=== PATIENT | female | born 1960 | race Caucasian/White ===

== ENCOUNTER → 2018-11-18 10:02 | Outpatient (CLI) | payer BC, SELFPAY ==
--- NOTE | 2018-11-18 10:07 | XR_ITS ---
PROCEDURE: XR LUMBAR SPINE MIN 4V CLINICAL INDICATION: LBP Low back pain COMPARISON: No exams were available for comparison FINDINGS: Normal alignment. No fracture or dislocation. There is mild degenerative disc disease at L3-L4. No lytic or blastic change. IMPRESSION: Mild degenerative disc disease L3-L4 otherwise negative Dictated by: Raymond Celaya MD 11/18/2018 11:51 Signed by: <Electronically signed by Raymond Celaya MD in [place]> 11/18/2018 11:51
== END ==
PROVIDERS: PCP Family Medicine; Visit Provider Family Medicine
DX: M54.5 Low back pain (principal)
CPT/HCPCS: 72110

== ENCOUNTER → 2019-09-02 16:02 | Outpatient (CLI) | payer OTHER, SELFPAY ==
--- NOTE | 2019-09-02 | XR_ITS ---
PROCEDURE: XR THORACIC SPINE 3V CLINICAL INDICATION: Back pain COMPARISON: No exams were available for comparison FINDINGS: Levoscoliosis of the thoracic spine. No acute fracture or dislocation. Mild degenerative disc disease is present in the midthoracic spine. IMPRESSION: Degenerative changes with scoliosis, no acute finding Dictated by: Raymond Celaya MD 09/02/2019 18:08 Electronically signed by Raymond Celaya MD in [place] 09/02/2019 18:08
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
--- NOTE | 2019-09-02 | XR_ITS ---
PROCEDURE: XR SHOULDER LT MIN 2V CLINICAL INDICATION: Posttraumatic pain COMPARISON: No exams were available for comparison FINDINGS: There are mild bony hypertrophic changes at the acromioclavicular joint. No acute fracture or dislocation is evident. Calcification is present along the lateral aspect of the humeral head consistent with calcific tendinitis. There are mild degenerative changes in the left glenohumeral joint IMPRESSION: No acute fracture. Calcific tendinitis with degenerative changes of the AC joint and glenohumeral joint Dictated by: Raymond Celaya MD 09/02/2019 18:04 Electronically signed by Raymond Celaya MD in [place] 09/02/2019 18:04
== END ==
PROVIDERS: PCP Family Medicine; Visit Provider Family Medicine
DX: M54.2 Cervicalgia (principal); V89.2XXA Person injured in unspecified motor-vehicle accident, traffic, initial encounter; M25.512 Pain in left shoulder
CPT/HCPCS: 72050; 72072; 73030

== ENCOUNTER → 2019-10-02 08:30 | Outpatient (CLI) | payer OTHER, SELFPAY ==
[2019-10-02 09:53] LABS: Coronavirus 19 IgG Antibody Negative (Negative); Coronavirus 19 IgM Antibody Negative (Negative)
== END ==
PROVIDERS: PCP Family Medicine; Visit Provider Family Medicine
DX: Z03.818 Encounter for observation for suspected exposure to other biological agents ruled out (principal)
CPT/HCPCS: 36415; 86328

== ENCOUNTER → 2020-07-09 09:16 | Outpatient (CLI) | payer OTHER, SELFPAY ==
[2020-07-09 09:55] LABS: Basophils % 0.6 % (0.1-2.0); Eosinophils # 0.1 K/mm3 (0.0-0.4); Eosinophils % 2.4 % (0.1-12.0); Hematocrit 44.2 % (37.0-47.0); Hemoglobin 14.8 g/dL (12.2-16.2); Lymphocytes # 1.7 K/mm3 (0.7-4.5); Lymphocytes % 29.8 % (10-50); Mean Corpuscular HGB Conc 33.5 g/dL (31.8-35.4); Mean Corpuscular Volume 86.7 fl (81-99); Mean Platelet Volume 9.2 fl (7.4-10.4); Monocytes # 0.4 K/mm3 (0.1-1.0); Monocytes % 6.8 % (1.7-9.3); Neutrophils # 3.4 K/mm3 (1.8-7.8); Neutrophils % 60.5 % (37.0-80.0); Platelet Count 249 K/mm3 (142-424); Red Cell Distribution Width 12.9 % (11.5-17.5); White Blood Count 5.6 K/mm3 (4.8-10.8)
[2020-07-09 11:59] LABS: Alanine Aminotransferase 19 U/L (12-78); Albumin Level 4.7 g/dl (3.5-5.0); Albumin/Globulin Ratio 1.7 (1.1-1.8); Alkaline Phosphatase 85 U/L (38-126); Aspartate Amino Transferase 27 U/L (14-36); Bilirubin,Total 0.6 mg/dl (0.2-1.3); Blood Urea Nitrogen 18 mg/dl (7-17); Calcium 10.2 mg/dl (8.4-10.2); Carbon Dioxide 28 mmol/L (22.0-30.0); Chloride 107 mmol/L (98-107); Estimated Glomerular Filt Rate 74 ml/min (>60); GFR (African American) 89 ML/MIN (>60); Globulin 2.7 g/dL (1.3-3.2); Glucose 96 mg/dl (74-100); Sodium 139 mmol/L (136-145); Total Protein,Serum 7.4 g/dl (6.3-8.2); Uric Acid 3.7 mg/dl (2.5-6.2)
[2020-07-09 12:30] LABS: Thyroid Stimulating Hormone 1.54 uIU/mL (0.465-4.68)
[2020-07-09 12:48] LABS: Vitamin B12 292 pg/mL (239-931)
[2020-07-09 13:15] LABS: Erythrocyte Sedimentation Rate 17 mm/hr (0-30)
[2020-07-10 12:24] LABS: RA Latex Turbid. <10.0 IU/mL (0.0-13.9)
[2020-07-13 17:06] LABS: Antinuclear Antibodies, IFA Negative (.)
[2020-07-16 08:55] LABS: HLA-B27 Negative (.)
== END ==
PROVIDERS: Visit Provider Nurse Practitioner Family
DX: R06.00 Dyspnea, unspecified (principal); M25.50 Pain in unspecified joint; M53.9 Dorsopathy, unspecified; R20.2 Paresthesia of skin
CPT/HCPCS: 36415; 80053; 82607; 84443; 84550; 85025; 85651; 86038; 86431; 86812

== ENCOUNTER → 2020-07-13 12:07 | Outpatient (CLI) | payer OTHER, SELFPAY ==
--- NOTE | 2020-07-13 | CA_ITS ---
APPROVED REPORT Exam: Pharmacologic Technologist: Bryanna Tellez, Ht: 5 ft 3 in Wt: 160 lbs BSA: 1.76 m2 HR: 75 bpm BP: 133/79 mmHg Stress Test Details Test: LEXISCAN HR Resting HR: 75 bpm Max Heart Rate (APMHR): 162 bpm Max HR Achieved: 129 bpm Target HR (85% APMHR): 137 bpm % of APMHR: 79 Recovery HR: 88 bpm BP Resting BP: 133/79 mmHg Max BP: 184/91 mmHg Recovery BP: 140.0/71.0 mmHg ECG Resting ECG: NSR Clinical Exercise duration: 04:00 min Highest Stage Achieved: Exercise capacity: 1.0 METs Stress ECG Conclusion Symptoms: Chest tightness, SOA, malaise Arrhythmias/Ectopy: None ST-T Changes: No significant changes. Conclusion: Unremarkable Lexiscan stress. Myoview images reported separately. Electronically signed by : Charles Joseph, 07/13/2020 18:09:31
--- NOTE | 2020-07-13 12:15 | NM_ITS ---
APPROVED REPORT Exam: Nuclear Stress Test Indication: CHEST PAIN..SHORT OF BREATH..FATIGUE Patient Location: Outpatient Stress Tech: Bryanna Tellez PR Tech:Yris Paiz, ARRT, RT (R)(N) Ht: 5 ft 3 in Wt: 160 lbs Bra Size: 36C HR: 75 bpm BP: 133/79 mmHg BSA: 1.76 m2 BMI: 28.3 History: CHEST PAIN..SHORT OF BREATH..FATIGUE5 Procedure: Patient received a 0.4 mg of intravenous Lexiscan, resting heart rate 75 bpm, resting blood pressure 133/79 mmHg, with Lexiscan maximum heart rate achived was 117 bpm which is Less than 85 % of the maximum predicted heart rate and blood pressure was 169/93 mmHg. With Lexiscan, patient denied any complaint of chest pain. Electrocardiogram Resting electrocardiogram shows sinus rhythm, with Lexiscan there is less than 1.[address] segment depression noted from the baseline EKG. The EKG portion of the Lexiscan is nondiagnostic. Cardiac Stress and Resting SPECT Images: Cardiac Stress and Resting SPECT images were obtained using technetium 99m Myoview 32.8 mCi stress and 10.62 mCi at rest. Gated SPECT for analysis of segmental wall motion and calculation of the ejection fraction also done. Prone images were also obtained. Cardiac stress and resting SPECT images show uniform myocardial activity without segmental perfusion abnormality, computer derived ejection fraction is 61% with no regional wall motion abnormality, right ventricle is normal size and contractility. However there is transient ischemic dilatation of the left ventricle seen, raising the concerns for presence of balanced ischemia. Conclusion: 1. The EKG portion of the Lexiscan is nondiagnostic. 2. No scintigraphic evidence of reversible ischemia seen, computer derived ejection fraction is 61% with no regional wall motion abnormality, right ventricle is normal size and contractility. There is transient ischemic dilatation of the left ventricle seen, raising the concerns for presence of balanced ischemia. 3. Abnormal Lexiscan Myoview study. Electronically signed by : Charles Joseph, 07/13/2020 18:26:45
== END ==
PROVIDERS: PCP Nurse Practitioner Family; Visit Provider Nurse Practitioner Family
DX: R07.9 Chest pain, unspecified (principal); R06.00 Dyspnea, unspecified; E78.5 Hyperlipidemia, unspecified; Z82.49 Family history of ischemic heart disease and other diseases of the circulatory system
CPT/HCPCS: 78452; 93017; A9502; J2785

== ENCOUNTER → 2020-07-20 12:00 | Outpatient (CLI) | payer OTHER, SELFPAY | PROVIDERS: PCP Nurse Practitioner Family; Visit Provider Internal Medicine | DX: Z20.822 Contact with and (suspected) exposure to COVID-19 (principal) | CPT/HCPCS: U0003 ==

== ENCOUNTER 2020-07-21 08:27 | Day surgery (SDC) | payer OTHER, SELFPAY ==
[2020-07-21] VITALS (13 sets, daily range): BP systolic 100–164; BP diastolic 49–94; PULSE 66–89; RESP 16–20; TEMP 36.9; O2SAT 94–100; BMI 29.0
--- NOTE | 2020-07-21 08:24 | IR_ITS ---
APPROVED REPORT Patient Location: Outpatient Felt Strip Finisher: SONNY Wallace RT (R) PROCEDURES Left heart catheterization Left ventriculogram Selective coronary angiogram Drug-eluting stent deployment to the proximal LAD INDICATION High risk abnormal Myoview, Coronary artery disease, Angina pectoris class III, Informed consent was obtained prior to the procedure. COMPLICATIONS None Estimated Blood Loss: Less than 10 mls TECHNIQUE One percent lidocaine used to anesthetize the right anterior aspect of the wrist. The right radial artery was accessed via the Seldinger technique. A 6 Slovak sheath was placed in the right radial artery. 2.5 mg of verapamil, 800 mcg of nitroglycerin, 1mg Lidocaine and 5000 U Heparin were given through the arterial sheath. The trap catheter was also used to perform left heart catheterization, left ventriculogram and selective coronary angiogram. At the end of the diagnostic procedure therapeutic heparin was administered giving a therapeutic ACT. Initially and I Shelley left guide catheter was placed in the left main artery however this would not seat properly therefore a 6 Slovak JL 3 guide catheter was placed in the left main artery. A Choice PT extra-support wire was placed distally in the LAD and a 3 mm x 22 mm resolute Oswaldo stent was deployed at 18 sharon reducing the critical stenosis to 0%. Proximal disease was present therefore 3.5 x 15 mm resolute Tolley stent was deployed proximal to the first stent yet still overlapping it and deployed at 20 sharon. An additional 3.5 x 8 mm resolute Tolley stent was then placed proximal to this still overlapping the second stent and deployed at 20 sharon to further reduce all of the disease. At the end of the procedure the stent was widely patent landing normal zone proximally and normal zone distally. JACKY II flow was present at the beginning of the procedure with JACKY-3 flow at the end of the procedure. After achieving excellent angiographic results the apparatus was removed the sheath was removed and hemostasis was achieved using TR banding patient was transferred to the postop holding area in stable condition ANGIOGRAPHIC RESULTS The left main artery Normal The left anterior descending artery Has proximal 30 and 40% followed by concentric 90% stenosis The circumflex artery Is a large-caliber probably codominant vessel with proximal 30% and a mid vessel 30 to 40% stenosis The right coronary artery Is a codominant vessel and has proximal 30% mid vessel 30 to 40% and distal 10 to 20% stenoses The BOLTON ventriculogram reveals Normal 65% The left ventricular end-diastolic pressure Severely elevated at 40 mmHg IMPRESSION Severe to critical proximal LAD disease as described above accompanied by JACKY II flow Successful stenting of the proximal LAD critical disease reduced to 0% with 3 drug-eluting stents placed in a contiguous manner Persistent mild to moderate coronary disease as described above Normal ejection fraction Severely elevated LVEDP most likely secondary to ischemic diastolic dysfunction PLAN 1. Dual antiplatelet therapy 2. LDL less than 55 3. Cardiac rehabilitation 4. Avoidance of tobacco products 5. At this time I do not want to treat the severely elevated LVEDP with diuretics. Most likely her diastolic dysfunction was secondary to the critical LAD stenosis. With improved JACKY-3 flow into the LAD this should resolve the diastolic dysfunction. 6. If after 2 weeks patient continues to experience dyspnea, at that time diuretics can be added to specifically treat the diastolic dysfunction Electronically signed by : Michael Cross, 07/21/2020 11:18:44
[2020-07-21 08:55] LABS: Basophils # 0.1 K/mm3 (0-0.2); Basophils % 1.1 % (0.1-2.0); Eosinophils # 0.2 K/mm3 (0.0-0.4); Eosinophils % 2.7 % (0.1-12.0); Hematocrit 45.1 % (37.0-47.0); Hemoglobin 14.9 g/dL (12.2-16.2); Lymphocytes # 1.7 K/mm3 (0.7-4.5); Lymphocytes % 28.1 % (10-50); Mean Corpuscular HGB Conc 32.9 g/dL (31.8-35.4); Mean Corpuscular Hemoglobin 28.8 pg (27.0-31.2); Mean Corpuscular Volume 87.5 fl (81-99); Mean Platelet Volume 9.3 fl (7.4-10.4); Monocytes # 0.4 K/mm3 (0.1-1.0); Monocytes % 6.7 % (1.7-9.3); Neutrophils # 3.6 K/mm3 (1.8-7.8); Neutrophils % 61.4 % (37.0-80.0); Platelet Count 242 K/mm3 (142-424); Red Blood Count 5.16 M/mm3 (4.20-5.40); White Blood Count 5.9 K/mm3 (4.8-10.8)
[2020-07-21 09:08] LABS: Chloride 103 mmol/L (98-107); Potassium 4.7 mmoL/L (3.5-5.1); Sodium 139 mmol/L (136-145)
[2020-07-21 09:11] LABS: Anion Gap 10.7 mEq/L (5-15); Blood Urea Nitrogen 18 mg/dl (7-17); Calcium 9.9 mg/dl (8.4-10.2); Carbon Dioxide 30 mmol/L (22.0-30.0); Creatinine Clearance Estimated 90 mL/min (50-200); Estimated Glomerular Filt Rate 74 ml/min (>60); GFR (African American) 89 ML/MIN (>60); Glucose 107 mg/dl (74-100)
[2020-07-21 12:24] LABS: CATHL Activated Clotting Time > 400 SEC (74-125)
--- NOTE | 2020-07-21 14:44 | HMH.PHACLD ---
Gissel Rincon has received discharge medication counseling on the following medications: ASPIRIN 81MG BRILINTA 90MG ATORVASTATIN 40MG BISOPROLOL 5MG ACEI NOT PRESCRIBED AT THIS TIME PER CARDIOLOGY. ALL NEW MEDICATIONS SENT TO [facility]. PATIENT HAD NO QUESTIONS AT THIS TIME AND VERBALIZED UNDERSTANDING. -ALEJANDRA ELENA, PHARMD
== END 2020-07-21 15:12 | disposition home or self-care (01) ==
PROVIDERS: PCP Nurse Practitioner Family; Visit Provider Internal Medicine
DX: I25.119 Atherosclerotic heart disease of native coronary artery with unspecified angina pectoris (principal); Z87.891 Personal history of nicotine dependence; M79.602 Pain in left arm; Z82.49 Family history of ischemic heart disease and other diseases of the circulatory system; R06.00 Dyspnea, unspecified; K21.9 Gastro-esophageal reflux disease without esophagitis
CPT/HCPCS: 36415; 80048; 85025; 85347; 92928; 93458; 99152; 99153; C1725; C1769; C1874; C1876; C9600; J1644; Q9967

== ENCOUNTER → 2020-07-28 11:09 | Outpatient (CLI) | payer OTHER, SELFPAY ==
[2020-07-28 11:34] LABS: Basophils # 0.1 K/mm3 (0-0.2); Basophils % 0.5 % (0.1-2.0); Eosinophils # 0.2 K/mm3 (0.0-0.4); Eosinophils % 1.7 % (0.1-12.0); Hematocrit 41.6 % (37.0-47.0); Hemoglobin 14.2 g/dL (12.2-16.2); Lymphocytes % 21.9 % (10-50); Mean Corpuscular HGB Conc 34.1 g/dL (31.8-35.4); Mean Corpuscular Hemoglobin 29.3 pg (27.0-31.2); Mean Corpuscular Volume 85.7 fl (81-99); Mean Platelet Volume 9.8 fl (7.4-10.4); Monocytes # 0.5 K/mm3 (0.1-1.0); Monocytes % 5.6 % (1.7-9.3); Neutrophils # 6.4 K/mm3 (1.8-7.8); Neutrophils % 70.4 % (37.0-80.0); Platelet Count 265 K/mm3 (142-424); Red Blood Count 4.86 M/mm3 (4.20-5.40); Red Cell Distribution Width 12.7 % (11.5-17.5); White Blood Count 9.1 K/mm3 (4.8-10.8)
[2020-07-28 12:00] LABS: Chloride 102 mmol/L (98-107); Potassium 4.5 mmoL/L (3.5-5.1); Sodium 138 mmol/L (136-145)
[2020-07-28 12:03] LABS: Anion Gap 13.5 mEq/L (5-15); Blood Urea Nitrogen 17 mg/dl (7-17); Calcium 9.9 mg/dl (8.4-10.2); Carbon Dioxide 27 mmol/L (22.0-30.0); Estimated Glomerular Filt Rate 74 ml/min (>60); GFR (African American) 89 ML/MIN (>60); Glucose 113 mg/dl (74-100)
--- NOTE | 2020-07-28 14:59 | CA_ITS ---
APPROVED REPORT Bilateral Lower Extremity Venous Study for Machine Maintenance Repairer: Romain RCS, RVS Indications Lower Extremity Pain: Right right leg pain, s/p rt radial heart cath with 3 stents 07/23/2020 Vein Imaging CFV (R): compressive, spontaneous, phasic, augmentation FEM (R): compressive, spontaneous, phasic, augmentation POP (R): compressive, spontaneous, phasic, augmentation DFV (R): compressive, spontaneous, phasic, augmentation PTV (R): compressive, spontaneous, phasic, augmentation GSV (R): compressive, spontaneous, phasic, augmentation Peroneals (R):compressive, spontaneous, phasic, augmentation GAS (R): compressive, spontaneous, phasic, augmentation Findings Color flow duplex demonstrates no evidence of DVT of the following right lower extremity Veins:Common Femoral Vein, Femoral Vein, Popliteal Vein, Posterior Tibial Veins, Peroneal Veins, Deep Femoral Vein. Conclusion Negative for DVT. Electronically signed by : Raymond Celaya MD 07/28/2020 17:23:37
== END ==
PROVIDERS: PCP Nurse Practitioner Family; Visit Provider Internal Medicine
DX: M79.604 Pain in right leg (principal)
CPT/HCPCS: 36415; 80048; 85025; 93971

== ENCOUNTER → 2020-08-03 10:11 | Outpatient (CLI) | payer OTHER, SELFPAY ==
--- NOTE | 2020-08-03 10:19 | XR_ITS ---
PROCEDURE: XR KNEE RT 4V CLINICAL INDICATION: right knee pain; weightbearing COMPARISON: No exams were available for comparison FINDINGS: No acute fractures or dislocations. Bone density is normal. Tricompartmental degenerative changes. Prominence of the intercondylar tubercles are noted. Chondrocalcinosis noted in the medial and lateral compartments. No suprapatellar joint effusion. No significant soft tissue abnormality is noted. IMPRESSION: Minor degenerative changes. Chondrocalcinosis. No acute fractures or dislocations. Dictated by: Beverly Silva 08/03/2020 12:14 Beverly Silva in [place] 08/03/2020 12:14
== END ==
PROVIDERS: PCP Nurse Practitioner Family; Visit Provider Orthopaedic Surgery
DX: M25.561 Pain in right knee (principal)
CPT/HCPCS: 73564

== ENCOUNTER → 2020-08-17 08:14 | Outpatient (CLI) | payer OTHER, SELFPAY ==
[2020-08-17 09:38] LABS: Alanine Aminotransferase 18 U/L (12-78); Albumin Level 4.4 g/dl (3.5-5.0); Alkaline Phosphatase 101 U/L (38-126); Aspartate Amino Transferase 21 U/L (14-36); Bilirubin,Direct 0.3 mg/dl (0.0-0.4); Bilirubin,Indirect 0.6 mg/dL (0.0-0.9); Bilirubin,Total 0.9 mg/dl (0.2-1.3); Bilirubin,Unconjugated 0.6 mg/dL (0.0-1.1); Chol/HDL Ratio 3.2 (1-3.5); Cholesterol 167 mg/dl (140-200); HDL Cholesterol 52 mg/dl (40-60); Total Protein,Serum 6.9 g/dl (6.3-8.2); Triglycerides 111 mg/dl (30-150); VLDL Cholesterol 22 mg/dL (0-40)
[2020-08-17 09:50] LABS: Direct LDL Cholesterol 86.62 mg/dL (100-129)
[2020-08-17 15:24] LABS: Anion Gap 11.2 mEq/L (5-15); Blood Urea Nitrogen 18 mg/dl (7-17); Calcium 9.2 mg/dl (8.4-10.2); Carbon Dioxide 25 mmol/L (22.0-30.0); Chloride 105 mmol/L (98-107); Estimated Glomerular Filt Rate 74 ml/min (>60); GFR (African American) 89 ML/MIN (>60); Glucose 102 mg/dl (74-100); Potassium 4.2 mmoL/L (3.5-5.1); Sodium 137 mmol/L (136-145)
== END ==
PROVIDERS: Internal Medicine; Visit Provider Physician Assistant
DX: R06.00 Dyspnea, unspecified (principal); I25.10 Atherosclerotic heart disease of native coronary artery without angina pectoris; K21.9 Gastro-esophageal reflux disease without esophagitis; Z82.49 Family history of ischemic heart disease and other diseases of the circulatory system; Z87.891 Personal history of nicotine dependence
CPT/HCPCS: 36415; 80048; 80061; 80076

== ENCOUNTER 2020-08-25 13:55 | Outpatient (RCR) | payer OTHER, SELFPAY | END 2020-11-08 10:45 | disposition home or self-care (01) | LOC: PT 13:55 | PROVIDERS: Visit Provider Internal Medicine | DX: I25.10 Atherosclerotic heart disease of native coronary artery without angina pectoris (principal) | CPT/HCPCS: 93798 ==

== ENCOUNTER → 2020-09-02 14:46 | Outpatient (CLI) | payer OTHER, SELFPAY ==
--- NOTE | 2020-09-02 15:30 | CA_ITS ---
APPROVED REPORT Refueler: MARINA Laterality: Bilateral Indications: CAD, dizziness Risk Factors CAD, Doppler Spectral Velocity Analysis ECA (R) 66.30/13.90 cm/s ECA (L) 54.50/13.90 cm/s dICA (R) 71.80/26.20 cm/s dICA (L) 71.10/26.20 cm/s Boni (R) 80.10/28.40 cm/s Boni (L) 77.10/24.70 cm/s pICA (R) 55.10/17.10 cm/s pICA (L) 79.60/25.00 cm/s dCCA (R) 69.50/19.20 cm/s dCCA (L) 71.30/17.30 cm/s pCCA (R) 96.20/20.30 cm/s pCCA (L) 86.70/20.20 cm/s Vert (R) 48.10/11.80 cm/s Vert (L) 34.80/10.20 cm/s ICA/CCA 1.15 ICA/CCA 1.12 Findings Duplex evaluation demonstrates stenosis of the right proximal internal carotid artery <20% with PSV <140 cm/sec, EDV <100 cm/sec, and IC/CC Ratio <4.0. Duplex evaluation demonstrates stenosis of the left proximal internal carotid artery <20% with PSV <140 cm/sec, EDV <100 cm/sec, and IC/CC Ratio <4.0. Conclusion Duplex evaluation demonstrates stenosis of the right proximal internal carotid artery <20% with PSV <140 cm/sec, EDV <100 cm/sec, and IC/CC Ratio <4.0. Duplex evaluation demonstrates stenosis of the left proximal internal carotid artery <20% with PSV <140 cm/sec, EDV <100 cm/sec, and IC/CC Ratio <4.0. Electronically signed by : Raymond Celaya MD 09/03/2020 15:06:52
== END ==
PROVIDERS: PCP Nurse Practitioner Family; Visit Provider Internal Medicine
DX: R06.00 Dyspnea, unspecified (principal); R42 Dizziness and giddiness; I25.10 Atherosclerotic heart disease of native coronary artery without angina pectoris; M79.602 Pain in left arm; M79.604 Pain in right leg; K21.9 Gastro-esophageal reflux disease without esophagitis; Z82.49 Family history of ischemic heart disease and other diseases of the circulatory system; Z87.891 Personal history of nicotine dependence
CPT/HCPCS: 93306; 93880

== ENCOUNTER → 2020-09-15 09:34 | Outpatient (CLI) | payer OTHER, SELFPAY ==
--- NOTE | 2020-09-15 | CA_ITS ---
APPROVED REPORT EXAM: Limited 2D Echocardiogram Liquor Bridge Operator Helper: Robyn Olivares, RCS, RVS Ht: 5 ft 3 in Wt: 164lbs BSA: 1.78 BP: 121/75 mmHg Indications: CAD, ex-Smoker, Inconclussive Aov study-09/02/20 2D Dimensions Aortic Root 3.14 cm F: 2.7 - 3.3 Left Atrium 2.74 cm F: 2.7 - 3.8 LVOT 1.87 cm (M/F) 1.5-2.5 Aortic Valve LVOT Max 77.00 (70-110 cm/s) LVOT VTI 18.24 cm AoV Peak Toño. 120.00 (50-130 cm/s) AO Peak GR. 5.70 mmHg AO Mean GR. 2.80 (<5 mmHg) AO VTI 26.89 (18-25 cm) MARGARET (VTI) 1.86 (2.5-4.5 cm2) Conclusion 1. Limited study was performed 2. Normal left ventricular size, preserved left ventricular systolic function, visually estimated ejection fraction 55% with no regional wall motion abnormality. 3. Minimally thickened and calcified aortic valve without aortic stenosis or aortic insufficiency. 4. No significant pericardial effusion noted. Electronically signed by : Charles Joseph, 09/16/2020 16:08:18
[2020-09-15 10:29] LABS: Basophils # 0.1 K/mm3 (0-0.2); Eosinophils # 0.2 K/mm3 (0.0-0.4); Eosinophils % 4.6 % (0.1-12.0); Hemoglobin 14.5 g/dL (12.2-16.2); Lymphocytes # 1.7 K/mm3 (0.7-4.5); Lymphocytes % 31.7 % (10-50); Mean Corpuscular HGB Conc 35.4 g/dL (31.8-35.4); Mean Corpuscular Hemoglobin 29.6 pg (27.0-31.2); Mean Corpuscular Volume 83.6 fl (81-99); Mean Platelet Volume 8.6 fl (7.4-10.4); Monocytes # 0.4 K/mm3 (0.1-1.0); Monocytes % 6.8 % (1.7-9.3); Neutrophils % 55.9 % (37.0-80.0); Platelet Count 299 K/mm3 (142-424); Red Blood Count 4.91 M/mm3 (4.20-5.40); Red Cell Distribution Width 13.2 % (11.5-17.5); White Blood Count 5.4 K/mm3 (4.8-10.8)
[2020-09-15 11:00] LABS: Anion Gap 12.3 mEq/L (5-15); Blood Urea Nitrogen 17 mg/dl (7-17); Calcium 9.9 mg/dl (8.4-10.2); Carbon Dioxide 28 mmol/L (22.0-30.0); Chloride 104 mmol/L (98-107); Estimated Glomerular Filt Rate 57 ml/min (>60); GFR (African American) 69 ML/MIN (>60); Glucose 98 mg/dl (74-100); Potassium 4.3 mmoL/L (3.5-5.1); Sodium 140 mmol/L (136-145)
[2020-09-15 11:04] LABS: C-Reactive Protein 3.3 mg/L (0-4)
[2020-09-15 11:53] LABS: C-Reactive Protein 3.4 mg/L (0-4)
[2020-09-15 12:08] LABS: Erythrocyte Sedimentation Rate 18 mm/hr (0-30)
[2020-09-16 08:32] LABS: Complement C3 177 mg/dL (82-167)
[2020-09-16 15:27] LABS: Actin (Smooth Muscle) Antibody 8 Units (0-19); Anti-Centromere B Antibodies <0.2 AI (0.0-0.9); Anti-DNA (DS) Ab Qn <1 IU/mL (0-9); Anti-Jo-1 <0.2 AI (0.0-0.9); Anti-Smith Antibody <0.2 AI (0.0-0.9); Antichromatin Antibodies <0.2 AI (0.0-0.9); Antiscleroderma-70 Antibodies <0.2 AI (0.0-0.9); Complement, Total (CH50) >60 U/mL (>41); RA Latex Turbid. <10.0 IU/mL (0.0-13.9); RNP Antibodies <0.2 AI (0.0-0.9); Sjogren's Anti-SS-A <0.2 AI (0.0-0.9); Sjogren's Anti-SS-B <0.2 AI (0.0-0.9)
[2020-09-17 15:59] LABS: Lupus Reflex Interpretation Comment: (.); PTT-LA 27.6 sec (0.0-51.9); dRVVT 38.8 sec (0.0-47.0)
[2020-09-23 14:39] LABS: APTT 24.7 sec (.); Anti-Cardiolipin Antibody IgG <10 GPL (.); Anti-Cardiolipin Antibody IgM <10 MPL (.); Beta-2 Glycoprotein I Ab, IgA <10 SAU (.); Beta-2 Glycoprotein I Ab, IgG <10 SGU (.); Beta-2 Glycoprotein I Ab, IgM <10 SMU (.); Hexagonal Phase Phospholipid 0 sec (.); Prothrombin Time 10.7 sec (.); Thrombin Time 17.8 sec (.)
== END ==
PROVIDERS: Visit Provider Nurse Practitioner Family
DX: I33.0 Acute and subacute infective endocarditis (principal); M32.9 Systemic lupus erythematosus, unspecified
CPT/HCPCS: 36415; 80048; 85025; 85597; 85598; 85610; 85613; 85651; 85670; 85730; 86140; 86146; 86147; 86161; 86162; 86225; 86235; 86255; 86431; 87040; 93306; U0003

== ENCOUNTER 2020-09-16 13:00 | Day surgery (SDC) | payer OTHER, SELFPAY ==
--- NOTE | 2020-09-16 | CA_ITS ---
APPROVED REPORT EXAM: Comprehensive 2D, Doppler, and color-flow Echocardiogram Underwriting Consultant: RT Ngoc(R) Ht: 5 ft 3 in Wt: 160lbs BSA: 1.76 BP: 121/75 mmHg Indications: Assess AV, CAD, 3 cardiac stents, ex smoker Procedure After obtaining informed consent, patient underwent transesophageal echo in the Bilingual Inside Sales Representative. Type of Sedation : Conscious Sedation Sedation was administered by Sherif Rivas C.R.N.A. Transesophageal probe was inserted and advanced into esophagus without difficulty by Dr. Isaiah Chacko. The EVERETTE was performed without complications. Throughout the procedure, the blood pressure, pulse oximetry, cardiac rhythm, and rate were monitored. The patient tolerated the procedure without adverse effects. Recovery from conscious sedation was uneventful and vital signs were stable. Left Ventricle Left ventricle is normal size with preserved ejection fraction, visually estimated ejection fraction 55% in the obtained views with no regional wall motion abnormality. Right Ventricle Right ventricle is normal size and contractility. Atria Left atrium is mildly enlarged, left atrial pain free of thrombus, there is good appendage flow by spectral Doppler. Right atrium is normal size. Intra-atrial septum is intact, there is no flow across the interatrial septum, agitated saline contrast study fails to identify intracardiac shunt. Aortic Valve Aortic valve is minimally thickened and fibrosed, there is no aortic stenosis or aortic insufficiency, there is no vegetation, or mass identified on aortic valve. Mitral Valve Mitral valve grossly normal, there is trace mitral regurgitation. Tricuspid Valve Tricuspid grossly normal, there is trace tricuspid regurgitation. Pulmonic Valve Pulmonic valve is grossly normal. Great Vessels Aortic root is normal size. Ascending, descending and arch of the aorta is normal Pericardium No significant pericardial effusion noted. Conclusion 1. Normal left ventricular size with preserved left ventricular systolic function, 2. No obvious valvular vegetation or mass identified in the study. 3. Agitated saline contrast study fails 25 intracardiac shunt. Electronically signed by : Charles Joseph, 09/16/2020 15:15:09
[2020-09-16 13:05] VITALS: BMI 29.1
[2020-09-16 13:18] VITALS: BP 141/93; PULSE 68; RESP 18; O2SAT 97
--- NOTE | 2020-09-16 13:39 | P.PN_ITS ---
[facility] Anesthesia Checklist - Patient Identification Patient Identification: Arm Band - Structural Data Admitted From: Home Planned Operative Procedure/s: EVERETTE Consent for Planned Operative Procedure(s) Verified: Yes - NPO Status Verified Time NPO: 00:00 - Airway Assessment C-Spine Mobility Assessed: Yes TMJ Mobility Assessed: Yes Dentition: Good Dentition - Neurological Assessment Level of Consciousness: Awake Hx Seizures: No Numbness or tingling in extremities: No - Anesthesia Plan Anesthesia Risk discussed: Yes Anesthesia Plan: Verified ASA Class: III Anesthesia Type: MAC [facility] History I have reviewed the patient's past medical history: Yes Medical History: Reports:: Coronary Artery Disease, Gastroesophageal Reflux Disease(GERD) Denies:: Cancer, Diabetes Mellitus Type 1, Diabetes Mellitus Type 2, Internal Pacemaker, MRSA, Seizures *Have you ever received a pneumonia vaccine?: Yes *Have you received a flu vaccine this season?: Yes Anesthesia experience/problems:: None Laterality Cases: Bilateral: Tonsillectomy Other Surgeries: Yes: No Previous Surgery, Cardiac Catheterization, Cholecystectomy, Coronary Stent, Tubal Ligation. No: Pacemaker Amputation: No Fractures: No - *Social History Last grade of school completed: Some college Smoking Status: Never smoker Alcohol Intake: current Alcohol Intake Frequency:: other Substance Use Type: denies use *Occupational Status:: employed Housing: house Household Members: spouse *Travel in the last 8 weeks: None Family Hx:: Diabetes, Hypertension, Coronary Artery Disease
[2020-09-16 14:03] VITALS: BP 109/68; PULSE 73; RESP 16; O2SAT 92
[2020-09-16 14:04] VITALS: BP 119/71; PULSE 71; PULSE 72; RESP 16; O2SAT 92
[2020-09-16 14:20] VITALS: BP 128/82; PULSE 67; RESP 16; O2SAT 93
== END 2020-09-16 14:45 | disposition home or self-care (01) ==
LOC: CATHLAB 13:02
PROVIDERS: PCP Nurse Practitioner Family; Visit Provider Internal Medicine Cardiovascular Disease
DX: I35.8 Other nonrheumatic aortic valve disorders (principal)
CPT/HCPCS: 36415; 87040; 93312

== ENCOUNTER → 2020-11-11 08:39 | Outpatient (CLI) | payer OTHER, SELFPAY ==
[2020-11-11 10:14] LABS: Alanine Aminotransferase 30 U/L (12-78); Albumin Level 4.6 g/dl (3.5-5.0); Alkaline Phosphatase 99 U/L (38-126); Aspartate Amino Transferase 31 U/L (14-36); Bilirubin,Direct 0.4 mg/dl (0.0-0.4); Bilirubin,Total 0.4 mg/dl (0.2-1.3); Chol/HDL Ratio 3.8 (1-3.5); Cholesterol 210 mg/dl (140-200); Creatine Kinase 51 U/L (30-135); HDL Cholesterol 55 mg/dl (40-60); Total Protein,Serum 7.2 g/dl (6.3-8.2); Triglycerides 130 mg/dl (30-150); VLDL Cholesterol 26 mg/dL (0-40)
[2020-11-11 10:26] LABS: Direct LDL Cholesterol 117.68 mg/dL (100-129)
== END ==
PROVIDERS: Visit Provider Internal Medicine
DX: I25.10 Atherosclerotic heart disease of native coronary artery without angina pectoris (principal); E78.5 Hyperlipidemia, unspecified; M62.838 Other muscle spasm; R52 Pain, unspecified
CPT/HCPCS: 36415; 80061; 80076; 82550

== ENCOUNTER 2021-01-05 07:48 | Outpatient (CLI) | payer OTHER, SELFPAY ==
[2021-01-05] VITALS (9 sets, daily range): BP systolic 93–115; BP diastolic 46–92; PULSE 67–79; RESP 18–19; TEMP 36.7–37.3; O2SAT 91–95
== END 2021-01-05 10:40 | disposition home or self-care (01) ==
LOC: INF 07:49
PROVIDERS: PCP Nurse Practitioner Family; Visit Provider Nurse Practitioner Family
DX: U07.1 COVID-19 (principal); Z23 Encounter for immunization
CPT/HCPCS: 96365

== ENCOUNTER → 2021-12-05 12:17 | Outpatient (CLI) | payer BC, SELFPAY ==
[2021-12-05 13:03] LABS: Basophils # 0.1 K/mm3 (0-0.2); Basophils % 1.2 % (0.1-2.0); Eosinophils # 0.3 K/mm3 (0.0-0.4); Eosinophils % 3.4 % (0.1-12.0); Hematocrit 46.1 % (37.0-47.0); Hemoglobin 14.7 g/dL (12.2-16.2); Lymphocytes # 2.2 K/mm3 (0.7-4.5); Lymphocytes % 29.1 % (10-50); Mean Corpuscular Volume 90.6 fl (81-99); Mean Platelet Volume 9.5 fl (7.4-10.4); Monocytes # 0.4 K/mm3 (0.1-1.0); Monocytes % 5.7 % (1.7-9.3); Neutrophils # 4.5 K/mm3 (1.8-7.8); Neutrophils % 60.7 % (37.0-80.0); Platelet Count 248 K/mm3 (142-424); Red Blood Count 5.09 M/mm3 (4.20-5.40); Red Cell Distribution Width 13.7 % (11.5-17.5); White Blood Count 7.5 K/mm3 (4.8-10.8)
[2021-12-05 13:49] LABS: Chloride 103 mmol/L (98-107); Potassium 4.3 mmoL/L (3.5-5.1); Sodium 139 mmol/L (136-145)
[2021-12-05 13:56] LABS: Alanine Aminotransferase 24 U/L (12-78); Albumin Level 4.5 g/dl (3.5-5.0); Alkaline Phosphatase 97 U/L (38-126); Anion Gap 11.1 mEq/L (5-15); Aspartate Amino Transferase 34 U/L (14-36); Bilirubin,Direct 0.2 mg/dl (0.0-0.4); Bilirubin,Indirect 0.6 mg/dL (0.0-0.9); Bilirubin,Total 0.8 mg/dl (0.2-1.3); Bilirubin,Unconjugated 0.6 mg/dL (0.0-1.1); Blood Urea Nitrogen 16 mg/dl (7-17); Calcium 9.5 mg/dl (8.4-10.2); Carbon Dioxide 28 mmol/L (22.0-30.0); Chol/HDL Ratio 3.6 (1-3.5); Cholesterol 195 mg/dl (140-200); Estimated Glomerular Filt Rate 64 ml/min (>60); GFR (African American) 77 ML/MIN (>60); Glucose 78 mg/dl (74-100); HDL Cholesterol 54 mg/dl (40-60); Magnesium 1.7 mg/dl (1.6-2.3); Total Protein,Serum 7.1 g/dl (6.3-8.2); Triglycerides 109 mg/dl (30-150); VLDL Cholesterol 22 mg/dL (0-40)
[2021-12-05 14:07] LABS: Direct LDL Cholesterol 109.65 mg/dL (100-129)
[2021-12-05 14:12] LABS: Free T4 (Free Thyroxine) 1.16 ng/dl (0.78-2.19)
[2021-12-05 14:26] LABS: Thyroid Stimulating Hormone 1.39 uIU/mL (0.465-4.68)
== END ==
PROVIDERS: PCP Nurse Practitioner Family; Visit Provider Nurse Practitioner
DX: I25.10 Atherosclerotic heart disease of native coronary artery without angina pectoris (principal); E78.2 Mixed hyperlipidemia
CPT/HCPCS: 36415; 80048; 80061; 80076; 83735; 84439; 84443; 85025

== ENCOUNTER → 2021-12-12 17:56 | Outpatient (CLI) | payer BC, OTHER, SELFPAY ==
--- NOTE | 2021-12-12 18:03 | ECG_ITS ---
APPROVED REPORT Exam: Resting ECG HR:84 bpm ECG Measurements Heart Rate 84 AXES NC 137 P 7 QRSd 84 QRS 62 QT 349 T 74 QTc 390 Conclusion SINUS RHYTHM LOW QRS VOLTAGE IN PRECORDIAL LEADS [QRS DEFLECTION < 1.0 mV IN CHEST LEADS] BORDERLINE ECG UNCONFIRMED REPORT Electronically signed by : Dawson Fallon MD 12/13/2021 21:09:28
[2021-12-12 18:49] LABS: Troponin I < 0.01 ng/ml (0.00-0.034)
== END ==
PROVIDERS: PCP Nurse Practitioner Family; Visit Provider Internal Medicine
DX: R07.9 Chest pain, unspecified (principal)
CPT/HCPCS: 84484; 93005

== ENCOUNTER → 2021-12-13 11:48 | Outpatient (CLI) | payer BC, SELFPAY ==
--- NOTE | 2021-12-13 11:48 | CA_ITS ---
APPROVED REPORT EXAM: Comprehensive 2D, Doppler, and color-flow Echocardiogram System Manager: Patsy Cantrell RVT Ht: 5 ft 3 in Wt: 148lbs BSA: 1.70 BP: 119/67 mmHg Indications: CP,SOA,CAD,HLD,EX SMOKER 2D Dimensions LVOT 1.84 cm (M/F) 1.5-2.5 LA Volume 7.30 mL LA Volume Index 4.29 mL/m2 (M/F) 16-34 M-Mode Dimensions RVDd 2.50 cm (0.9-2.6) LA Diam 2.82 cm (1.9-4.0) LVDd 4.36 cm (3.5-5.7) Ao Diam 3.07 cm (2.0-3.7) LVDs 3.22 cm (3.5-5.7) IVSd 0.43 cm (0.6-1.1) PWd 0.86 cm (0.6-1.1) EF (Teich) 51.50% FS 26.10% EDV (Teich) 85.80 mL ESV (Teich) 41.60 mL LV Diastology E Decel Time 193.00 (160-240 msec) E/A Ratio 1.2 MED E' 10.00 (< 7 cm/sec) E'/MED E' Ratio 8.72 (>14) LAT E' 10.80 (<10 cm/sec) E/LAT E' Ratio 8.07 (>14) Aortic Valve AO Peak GR. 3.60 mmHg Mitral Valve MV E Max Toño. 87.00 (40-130 cm/s) MV A Velocity 71.00 (40-130 cm/s) E/A Ratio 1.23 MV Decel. Time 193.00 (160-240 ms) MV PHT 57.00 ms Pulmonary Valve PV Peak Velocity 56.00 (50-150 cm/s) Tricuspid Valve TR P. Velocity 244.00 cm/s RAP Estimate 10.00 mmHg RVSP 33.80 mmHg Left Ventricle Left atrium is normal size, left ventricle is normal size, there is no concentric left ventricular hypertrophy, estimated ejection fraction 55% with no regional wall motion abnormality, diastolic parameters are within normal range. Right Ventricle Right atrium and right ventricle are normal size and contractility. Aortic Valve Aortic valve is minimally thickened and fibrosed there is no aortic stenosis or aortic insufficiency. Mitral Valve Mitral valve is grossly normal, there is trace mitral regurgitation. Tricuspid Valve Tricuspid valve grossly normal, there is trace tricuspid regurgitation, tricuspid regurgitation jet velocity is inadequate for calculation of the right ventricular systolic pressure. Pulmonic Valve Pulmonic valve is poorly visualized. Great Vessels Aortic root is normal size. Inferior vena cava is normal size with normal inspiratory collapse. Pericardium No significant pericardial effusion noted. Conclusion 1. Normal left ventricular size, preserved left ventricular systolic function, estimated ejection fraction 55% with no regional wall motion abnormality, diastolic parameters are within normal range. 2. Trace mitral and tricuspid regurgitation. 3. No significant pericardial effusion. 4. Inferior vena cava normal size with normal inspiratory collapse. Electronically signed by : Charles Joseph MD 12/13/2021 18:35:26
== END ==
PROVIDERS: PCP Nurse Practitioner Family; Visit Provider Internal Medicine
DX: R06.00 Dyspnea, unspecified (principal); I20.8 Other forms of angina pectoris; E78.2 Mixed hyperlipidemia; Z87.891 Personal history of nicotine dependence
CPT/HCPCS: 93306

== ENCOUNTER → 2022-06-21 06:55 | Outpatient (CLI) | payer BC, OTHER, SELFPAY ==
--- NOTE | 2022-06-21 06:55 | NM_ITS ---
APPROVED REPORT Exam: Nuclear Stress Test Indication: CHEST PAIN..SHORT OF BREATH..FATIGUE Patient Location: Outpatient Stress Tech: Angelique Rodriguez ND Tech:Vanessa Mckinnon SONNY RT(R)(N) Ht: 5 ft 3 in Wt: 152 lbs Bra Size: 36C HR: 65 bpm BP: 133/79 mmHg BSA: 1.72 m2 TID: 1.18 BMI: 26.9 History: CHEST PAIN..SHORT OF BREATH..FATIGUE Procedure: Patient exercised on Irvin protocol 7:31 minutes and sec, resting heart rate 65 bpm, resting blood pressure 133/79 mmHg, with exercise maximum heart rate achived was 111 bpm which is 69 % of the maximum predicted heart rate and blood pressure was 150/80 mmHg. Test was stopped due to SOA..FATIGUE. Patient denied any complaint of chest pain. Patient has Good exercise capacity, achieved 10.1 METs of workload on treadmill, the blood pressure response to exercise was Adequate. Electrocardiogram Resting electrocardiogram shows sinus rhythm, with exercise there is less than 1.[address] segment depression noted from the baseline EKG. The EKG portion of the exercise Myoview is nondiagnostic as patient did not achieve the target heart rate. Cardiac Stress and Resting SPECT Images: Cardiac Stress and Resting SPECT images were obtained using technetium 99m Myoview 32.5 mCi stress and 10.42 mCi at rest. Gated SPECT analysis of segmental wall motion and calculation of the ejection fraction also done. Prone images were also obtained. Cardiac stress and rest SPECT images show uniform myocardial activity without segmental perfusion abnormality, computer derived ejection fraction is 60% with no regional wall motion abnormality, right ventricle is normal size and contractility. Conclusion: 1. The EKG portion of the exercise Myoview was nondiagnostic as patient did not achieve the target heart rate, patient has good exercise capacity achieved 10.1 METs of workload on treadmill, the blood pressure response to exercise was adequate, there was no exercise-induced chest discomfort. 2. No scintigraphic evidence of reversible ischemia seen at this level of exercise, computer derived ejection fraction is 60% with no regional wall motion abnormality, right ventricle is normal size and contractility. 3. Normal myocardial perfusion imaging at submaximal heart rate. Electronically signed by : Charles Joseph MD 06/21/2022 18:36:44
--- NOTE | 2022-06-21 06:55 | CA_ITS ---
APPROVED REPORT Exam: Exercise Treadmill Technologist: Angelique Rodriguez Ht: 5 ft 3 in Wt: 158 lbs BSA: 1.75 m2 HR: 58 bpm BP: 133/79 mmHg Indications: Chest pain Medical History Medications: Aspirin,,,,, Pantoprazole,,,,, CloPIdogrel,,,,, BisOPROLOL,,,,, CetIRIZINE,,,,, RoSUVASTATIN,,,,, Co Q10,,,,, Multivitamin,,,,, Furosemide,,,,, Stress Test Details Test: Irvin HR Resting HR: 65 bpm Max Heart Rate (APMHR): 160.551260 bpm Max HR Achieved: 111 bpm Target HR (85% APMHR): 136.842503 bpm % of APMHR: 69.38 Recovery HR: 63 bpm BP Resting BP: 133.0/79.0 mmHg Max BP: 150.0/80.0 mmHg Recovery BP: 130.0/54.0 mmHg ECG Resting ECG: Sinus bradycadia, low voltage QRS Clinical Exercise duration: 07:31 min Highest Stage Achieved: Exercise capacity: 10.1 METs Stress ECG Conclusion Patient walked 7:31 into stage III of Irvin Protocol. Stopping due to shortness of air, fatgue. Symptoms: No chest pain Arrhythmias/Ectopy: Rare PAC ST-T Changes: Normal ST response to exercise. Conclusion: Normal GXT to heart rate achieved (69% of PM). Myoview images reported separately. Test Summary REST . . . . . . . Sitting REST . . . . . . . Standing REST 05:05 0.0 0.0 65 . 133/ 79 . . Stage 1 01:00 10.0 1.7 80 . . . . Stage 1 02:00 10.0 1.7 83 . . . . Stage 1 03:00 10.0 1.7 83 . 142/ 80 . . Stage 2 01:00 12.0 2.5 92 . . . . Stage 2 02:00 12.0 2.5 95 . . . . Stage 2 03:00 12.0 2.5 99 . . . . Stage 3 . . . . . . . Cardiolite injected Stage 3 01:00 14.0 3.4 106 . 150/ 80 . . Stage 3 01:31 14.0 3.4 110 . 150/ 80 . Stop exercise at 07:31 RECOVERY 01:00 0.0 0.0 91 . . . . RECOVERY 02:00 0.0 0.0 75 . . . . RECOVERY 03:00 0.0 0.0 66 . 150/ 73 . . RECOVERY 04:00 0.0 0.0 73 . 135/ 58 . . RECOVERY 05:00 0.0 0.0 64 . 130/ 54 . . RECOVERY 05:24 0.0 0.0 63 . 130/ 54 . . Electronically signed by : Charles Joseph MD 06/21/2022 18:22:50
== END ==
PROVIDERS: PCP Nurse Practitioner Family; Visit Provider Internal Medicine
DX: R06.00 Dyspnea, unspecified (principal); I20.9 Angina pectoris, unspecified; E78.2 Mixed hyperlipidemia; Z87.891 Personal history of nicotine dependence
CPT/HCPCS: 78452; 93017; A9502

== ENCOUNTER 2023-06-26 10:02 | Outpatient (CLI) | payer BC, OTHER, SELFPAY ==
--- NOTE | 2023-06-26 10:08 | MM_ITS ---
PROCEDURE INFORMATION: Exam: MG Bilateral Screening 3D Mammography Exam date and time: 06/26/2023 9:57 AM Age: 62 years old Clinical indication: Screening. No family history of breast cancer. TECHNIQUE: Imaging protocol: Bilateral Screening tomosynthesis and 2D mammography including computer-aided detection (CAD) when performed. COMPARISON: 1. MG DMSB DIGITAL MAMM-SCREEN BILATERAL 02/09/2011 10:59 AM 2. MG DIGMAMMS MAMMOGRAM SCREEN-HAND TRUCKER N/C 12/30/2008 11:20 AM 3. MG DIGMAMMS MAMMOGRAM SCREEN-HAND TRUCKER N/C 01/26/2006 11:20 AM FINDINGS: MAMMOGRAPHY: Breast composition: The breasts are extremely dense, which lowers the sensitivity of mammography. Mass: None. Architectural distortion: None. Calcifications: Questionable grouping of calcifications in the left upper outer quadrant middle 3rd. Asymmetric density: None. Skin thickening: None. Axillary adenopathy: None. IMPRESSION: Patient will be recalled for left diagnostic mammography with magnification views in CC and true lateral for further evaluation of questionable left breast calcifications. ASSESSMENT: BI-RADS Category 0: Incomplete: Need Additional Imaging Evaluation and/or Prior Mammograms for Comparison
== END 2023-06-26 23:59 ==
LOC: RAD 10:03
PROVIDERS: PCP Nurse Practitioner Family; Visit Provider Nurse Practitioner Family
DX: Z12.31 Encounter for screening mammogram for malignant neoplasm of breast (principal)
CPT/HCPCS: 77063; 77067

== ENCOUNTER 2023-07-06 14:47 | Outpatient (CLI) | payer SELFPAY ==
--- NOTE | 2023-07-06 15:10 | MM_ITS ---
PROCEDURE INFORMATION: Exam: MG Left Diagnostic Breast Tomosynthesis Exam date and time: 07/06/2023 3:05 PM Age: 62 years old Clinical indication: Patient recalled on the basis of a screening mammogram for further evaluation; Left breast; calcifications TECHNIQUE: Imaging protocol: Left Diagnostic tomosynthesis and 2D mammography including computer-aided detection (CAD) when performed. Unilateral or bilateral exam. COMPARISON: 1. MG MM DIG SCREENING MAMM BI W/CAD 06/26/2023 9:57 AM 2. MG DMSB DIGITAL MAMM-SCREEN BILATERAL 02/09/2011 10:59 AM FINDINGS: MAMMOGRAPHY: Breast composition: The breast is extremely dense, which lowers the sensitivity of mammography (based on the most recent screening mammogram report). Breast mammogram findings: Digital diagnostic magnification views of the left breast and 90 degree lateral view of the left breast demonstrates several coarse benign dystrophic calcifications. No suspicious clustered calcifications are seen. IMPRESSION: No mammographic evidence of malignancy. Benign calcifications in the left breast.Annual bilateral mammographic screening is recommended unless otherwise clinically indicated. ASSESSMENT: BI-RADS Category 2: Benign.
== END 2023-07-06 23:59 | disposition home or self-care (01) ==
PROVIDERS: PCP Nurse Practitioner Family; Visit Provider Nurse Practitioner Family
DX: R92.8 Other abnormal and inconclusive findings on diagnostic imaging of breast (principal)
CPT/HCPCS: 77061; 77065; G0279

== ENCOUNTER 2025-01-28 10:24 | Outpatient (CLI) | payer BC, SELFPAY | END 2025-01-28 23:59 | disposition home or self-care (01) | LOC: LAB.DROPOF 01-29 20:08 | PROVIDERS: PCP Nurse Practitioner Family; Visit Provider Student in an Organized Health Care Education/Training Program | DX: N39.0 Urinary tract infection, site not specified (principal) | CPT/HCPCS: 87086; 87088; 87186 ==

== ENCOUNTER 2025-03-16 08:56 | Outpatient (CLI) | payer BC, SELFPAY ==
--- OUTSIDE RECORDS SUMMARY | 2025-03-17 13:19 | XMS_ITS | Clinical Summary ---
Author Organization [facility] Address [address] [place] [address] Care Team Providers Care Web Development Manager Name Role Phone Sruthi Sapp APRN Primary Care Provid er Allergies No known active allergies Medications No known medications Active Problems No known active problems Family History Medical History Relation Name Comments Diabetes Mother Heart disease Mother Relation Name Status Comments Mother Other FAMILY HISTORY Social History Tobacco Use Types Packs/Day Years Used Date Smoking Tobacco: Former Alcohol Use Standard Drinks/Week Comments Yes 0 (1 standard drink = 0.6 oz pur e alcohol) OCCASIONAL/NO ABUSE Overall Financial Resource Strain (CARDIA) Answe r Date Recorded How hard is it for you to pa y for the very basics like food, housing, medical care, and heating? Not hard at all 01/09/2020 [facility] Occupat ional Health - Occupational Stress Questionnaire Answer Date Recorded Do you feel stress - tense, restless, nervous, or anxious, or unable to sleep at night because your mind is troubled all the time - these days? Not at all 01/09/2020 Exercise Vital Sign Answer Date Recorde d On average, how many days pe r week do you engage in moderate to strenuous exercise (like a brisk walk)? 0 days 01/09/2020 On average, how many minutes do you engage in exercise at this level? 0 min 01/09/2020 Hunger Vital Sign Answer Date Recorded Within the past 12 months, y ou worried that your food would run out before you got the money to buy more. Never true 01/09/20 20 Within the past 12 months, t he food you bought just didn't last and you didn't have money to get more. Never true 01/09/2020 PRAPARE - Transportation Answer Date Re corded In the past 12 months, has l ack of transportation kept you from medical appointments or from getting medications? No 12/24 In the past 12 months, has l ack of transportation kept you from meetings, work, or from getting things needed for daily living? No 01/09/2020 Abuse Screen Answer Date Recorded Unsafe at Home or Work/School Not on file Feels Threatened by Someone? Not on file 12/2022 Does Anyone Keep You from Co ntacting Others or Doint Things Outside the Home? Not on file 01/02/2023 Physical Sign of Abuse Present Not on file 1 Housing Stability Answer Date Recorded Current Living Arrangements Not on file 12/24 Potentially Unsafe Housing Conditions Not on preet e 01/02/2023 Family and Community Support Answer Mason e Recorded Help with Day-to-Day Activities Not on file 01/02/2023 Lonely or Isolated Not on file 01/02/2023 Employment Answer Date Recorded Do you want help finding or keeping work or a bhavik b? Not on file 01/02/2023 Disabilities Answer Date Recorded Concentrating, Remembering, or Making Decisions Difficulty Not on file 01/02/2023 Doing Errands Independently Difficulty Not on fi le 01/02/2023 Education Answer Date Recorded Help with school or training? Not on file Preferred Language Not on file 01/02/2023 Comments No Sex and Gender Information Value Date Recorded Sex Assigned at Not on file Legal Sex Female 1:40 PM EDT Gender Identity Not on file Sexual Orientation Not on file Occupation Industry Job Start Date Job End Date [employer] Not on file Not on file Not on file Last Filed Vital Signs Vital Sign Reading Time Taken Comments Blood Pressure 120/70 01/09/2020 8:32 AM EDT Pulse - - Temperature 36.1 C (96.9 F) 01/09/2020 8:32 AM EDT Respiratory Rate - - Oxygen Saturation - - Inhaled Oxygen Concentration - - Weight 72.6 kg (160 lb) 01/09/2020 8:32 AM EDT Height 160 cm (5' 3 ) 01/09/2020 8:32 AM EDT Body Mass Index 28.34 01/09/2020 8:32 AM EDT Plan of Treatment Health Maintenance Due Date Last Done Comments Annual Gynecologic Pelvic an d Breast Exam 1960 TDAP/TD VACCINES (1 - Tdap) 05/31/1996 05/30/1996 COLOGUARD 2006 COLON CANCER SCREENING 5 YEA R SIGMOIDOSCOPY 2006 COLONOSCOPY [address] CANCER SCREENING [address] CT COLONOGRAPHY 2006 FECAL OCCULT BLOOD TEST 2006 FIT Testing (1 year) 2006 Pneumococcal Vaccine 50+ (1 of 1 - PCV) 11/03/2011 ZOSTER VACCINE (1 of 2) 11/03/2011 ANNUAL PHYSICAL 12/23/2019 HEPATITIS C SCREENING 12/23/2019 MAMMOGRAM 01/06/2022 01/07/2020, 10/25, 10/07/2014, Additional history exists INFLUENZA VACCINE 10/24/2024 Procedures Procedure Name Priority Date/Time Associated Diagnosis Comments MAMMO SCREENING DIGITAL TOMOSYNTHESIS BILATERAL W CAD Routine 01/07/2020 1:35 PM EDT Visit for screening mammogram from Last 3 Months or Most Recently Relevant to Health Maintenance Results * Mammo Screening Digital Tomosynthesis Bilateral With CAD (01/07/2020 1:35 PM EDT) Anatomical Region Laterality Modality Breast N/A Mammography 01/13/2020 9:36 AM EDT Impressions 01/13/2020 9:54 AM EDT Negative screening mammogram. RECOMMENDATION: Continue annual screening mammography. BI-RADS CATEGORY 1, NEGATIVE. CAD was utilized. The standard false-negative rate of mammography is between 10% and 25%. Complex patterns or increased breast density will markedly elevate the false-negative rate of mammography. A letter, in lay terminology, with the results of this exam will be mailed to the patient. This report was finalized on 01/13/2020 9:[address] Giuliana Coleman MD. Narrative 01/13/2020 9:54 AM EDT BILATERAL SCREENING MAMMOGRAM WITH TOMOSYNTHESIS: HISTORY: The patient has no personal or significant family history of breast cancer and no new breast complaints at the time of screening mammography. She has gained 21 pounds since her prior mammogram. The patient started hormone replacement therapy in 2016. TECHNIQUE: Bilateral CC and MLO low dose, full field digital mammographic images were obtained with 2-D acquisitions and tomosynthesis. COMPARISON: 11/16/2017, 10/15/2014, 10/07/2014, 07/30/2013, and 02/09/2011 FINDINGS: The breast tissue is heterogeneously dense, which may obscure small masses. The fibroglandular pattern is stable. There are no suspicious masses, worrisome calcifications, nonsurgical areas of architectural distortion, or other secondary signs of malignancy. us Carolyn Adams MD IMG MAMMOGRAPHY ORDERABLES Final Result from Last 3 Months or Most Recently Relevant to Health Maintenance Insurance [facility] PPO Care Teams Web Development Manager Relationship Specialty Start Date End Date Sruthi Sapp APRN [address] [place] [address] PCP - General Family Medicine 07/17/23
--- OUTSIDE RECORDS SUMMARY | 2025-03-17 13:19 | XMS_ITS | Clinical Summary ---
Author Organization [facility] Address [address] [place] [address] Care Team Providers Care Therapeutic Assistant Name Role Phone Robert Taveras MD Primary Care Provider [phone] Social History Tobacco Use Types Packs/Day Years Used Date Smoking Tobacco: Never Assessed Comments Unknown Sex and Gender Information Value Date Recorded Sex Assigned at Not on file Legal Sex Female 7:36 PM EDT Gender Identity Not on file Sexual Orientation Not on file Plan of Treatment Health Maintenance Due Date Last Done Comments [facility]-Depression Screening 1960 [facility]-Infant/Child/Adol SDOH Screenings 1960 [facility]- SDOH Screenings 11/03/1979 [facility]-Adult SDOH Screenings 11/03/1979 [facility]-Pap Smear 1982 [facility]-Cervical Cancer Screening 11/03/1991 [facility]-HPV/Cotest 11/03/1991 [facility]-DTaP,Tdap,and Td Vaccine s (1 - Tdap) 05/31/1996 05/30/1996 CT Colonography 2006 Colonoscopy 2006 FIT-DNA 2006 FIT 2006 FOBT 2006 Sigmoidoscopy 2006 [facility]-Colorectal Cancer Screening 2006 [facility]-Pneumococcal Vaccine: 50 + Years (1 of 1 - PCV) 11/03/2011 [facility]-Zoster Vaccines (1 of 2) 11/03/2011 [id number] Vaccine (1 - 20 25-26 season) 2024 [facility]-Influenza Vaccine (#1) 2024 12/27/2018 [facility]-RSV Vaccine: 60+ Years o r (1 - 1-dose 75+ series) 2036 [facility]-Hepatitis A Vaccines Aged Out 03/01/2018 No longer eligible based on patient's age to complete this topic HPV Vaccines (No Doses Required) Completed [facility]-HIB Vaccines Aged Out No longer e ligible based on patient's age to complete this topic [facility]-IPV Vaccines Aged Out No longer e ligible based on patient's age to complete this topic [facility]-Rotavirus Vaccines Aged Out No lo nger eligible based on patient's age to complete this topic Insurance [facility] Care Teams Therapeutic Assistant Relationship Specialty Start Date End Date Robert Taveras MD [address] [id number] PCP - General 03/26/20
== END 2025-03-16 23:59 | disposition home or self-care (01) ==
LOC: LAB.DROPOF 03-17 13:16
PROVIDERS: PCP Nurse Practitioner Family; Visit Provider Student in an Organized Health Care Education/Training Program
DX: N39.0 Urinary tract infection, site not specified (principal)
CPT/HCPCS: 87086; 87088; 87186